=== PATIENT | male | born 1955 | race Hispanic/Latino ===

== ENCOUNTER 2023-08-02 16:50 | Inpatient (IN) | payer MEDICARE ==
[2023-08-02 18:12] VITALS: BMI 37.7
[2023-08-02] MEDS ORDERED: Ondansetron ODT 4 MG TAB PO PRN (18:44)
[2023-08-02] MEDS ORDERED: Ondansetron PF 4 MG/2 ML Vial IVP PRN (18:44)
[2023-08-02] MEDS ORDERED: Acetaminophen 325 MG TAB PO PRN (18:45)
[2023-08-02] MEDS ORDERED: Meclizine HCl 25 MG TAB PO PRN (18:45)
[2023-08-02] MEDS ORDERED: hydrALAZINE 20 MG/ML VIAL SLOW IVP PRN (19:42)
[2023-08-02 20:45] LABS: Troponin I Less than 0.010 ng/mL (< 0.028)
[2023-08-02] MEDS: Atorvastatin Calcium 40 MG TAB PO SCH (21:23)
[2023-08-03 03:44] LABS: #Basophils 0.03 10x3/uL (0.0-0.2); %Basophils 0.4 % (0.0-1.0); %Eosinophils 1.9 % (0.0-10.0); %Lymphocytes 25.5 % (21.0-51.0); %Monocytes 9.4 % (0.0-10.0); %Neutrophils 62.7 % (42.0-75.0); Hematocrit 45.9 % (42.0-52.0); Hemoglobin 15.7 g/dL (14.0-18.0); Mean Corpuscular HGB CONC 34.2 g/dL (32.0-36.0); Mean Corpuscular Volume 90.5 fL (78.0-98.0); Mean Platelet Volume 9.6 fL (7.4-10.4); Platelet Count 201 10x3/uL (130-400); RBC Distribution Width 12.6 % (11.5-14.5); Red Blood Cell (RBC) Count 5.07 mill/uL (4.70-6.10)
[2023-08-03 03:52] LABS: Hemoglobin A1c 5.3 % (4.0-6.0)
[2023-08-03 04:02] LABS: Anion Gap 14 mmol/L (10-20); BUN (Urea Nitrogen) 13 mg/dL (8.4-25.7); Calc. Creatinine Clearance 135 mL/min (70-130); Calcium 8.8 mg/dL (7.8-10.44); Carbon Dioxide 24 mmol/L (23-31); Cardiac Risk 3.5 (Less than 4.5); Chloride 108 mmol/L (98-107); Cholesterol 77 mg/dl (< 200 Desired); Estimated GFR 96; Glucose 100 mg/dL (80-115); HDL Cholesterol 22 mg/dL (>60 Neg Risk); LDL Cholesterol, Calculated 37 mg/dL; Magnesium 1.9 mg/dL (1.6-2.6); Potassium 4.1 mmol/L (3.5-5.1); Sodium 142 mmol/L (136-145); Triglycerides 91 mg/dL (Less than 150)
[2023-08-03] MEDS: Aspirin 81 mg Enteric Coated Tablet PO SCH (09:05)
[2023-08-03 16:19] VITALS: BP 130/76; TEMP 99.4
== END 2023-08-03 16:55 | disposition home or self-care (01) | DRG 155 ==
LOC: 2SE 16:50 → OBSVTOIN 08-03 14:19
PROVIDERS: ADMIT Internal Medicine; ATTEND Family Medicine
DX: H69.82 Other specified disorders of Eustachian tube, left ear (principal); G45.9 Transient cerebral ischemic attack, unspecified; I42.9 Cardiomyopathy, unspecified; I10 Essential (primary) hypertension; I25.10 Atherosclerotic heart disease of native coronary artery without angina pectoris; H93.12 Tinnitus, left ear; H91.92 Unspecified hearing loss, left ear; Z91.040 Latex allergy status; Z95.818 Presence of other cardiac implants and grafts; Z79.82 Long term (current) use of aspirin; Z79.899 Other long term (current) drug therapy; Z95.0 Presence of cardiac pacemaker; Z98.890 Other specified postprocedural states
CPT/HCPCS: 36415; 80048; 80061; 83036; 83735; 84443; 85025; 93880; G0378